=== PATIENT | male | born 1945 | race Caucasian/White ===

== ENCOUNTER 2018-09-26 09:59 | Inpatient (IN) ==
[2018-09-26] MEDS ORDERED: ACETAMINOPHEN 325 MG TABLET PO PRN (13:08)
[2018-09-26] MEDS ORDERED: guaiFENesin/CODEINE 5 ML LIQUID PO PRN (13:08)
[2018-09-26] MEDS ORDERED: MORPHINE 4 MG/1 ML VIAL IV PRN (13:48)
[2018-09-26] MEDS ORDERED: ONDANSETRON 4 MG/2 ML VIAL IV PRN (13:48)
[2018-09-26] MEDS ORDERED: guaiFENesin/DM ER 600-30 MG TABLET PO PRN (13:48)
[2018-09-26] MEDS ORDERED: diphenhydrAMINE CAP 25 MG CAPSULE PO PRN (13:48)
[2018-09-26] MEDS ORDERED: ALBUTEROL 2.5 MG/3 ML NEB RESP TX PRN (13:52)
[2018-09-26] MEDS ORDERED: DEXTROSE 50% 25 GM/50 ML VIAL IV PRN (13:55)
[2018-09-26] MEDS ORDERED: GLUCAGON 1 MG VIAL IM PRN (13:55)
[2018-09-26] MEDS ORDERED: HEPARIN 5,000 UNIT/1 ML VIAL SUBCUT SCH (14:00)
[2018-09-26] MEDS ORDERED: methylPREDNISolone SOD SUC 125 MG/2 ML VIAL IV SCH (14:00)
[2018-09-26] MEDS ORDERED: cefTRIAXone 1,000 MG in SYRINGE 1 EACH IV SCH (14:00)
[2018-09-26] MEDS ORDERED: AZITHROMYCIN INJ 500 MG in SODIUM CHLORIDE 0.9% 250 ML IV SCH (14:00)
[2018-09-26 14:04] LABS: Albumin 3.3 G/DL (3.4-5.0); Bilirubin,Total 1.2 MG/DL (0.2-1.0); Calcium 8.7 MG/DL (8.5-10.1); Osmolality,Calculated 262.7 MOS/KG (273-304); Potassium 4.3 MMOL/L (3.5-5.1); Total Protein 7.4 G/DL (6.4-8.3)
[2018-09-26 14:11] LABS: Troponin I 1.51 NG/ML (0.00-0.045)
[2018-09-26] MEDS ORDERED: HYDROcodone/HOMATROPINE 5 ML UDCUP PO PRN (14:28)
[2018-09-26 14:31] LABS: Risk Ratio 3.6; Thyroid Stimulating Hormone 0.677 uIU/ml (0.358-3.74); VLDL CHOLESTEROL 18.8 MG/DL
[2018-09-26] MEDS ORDERED: SODIUM CHLORIDE 0.9% IV ONE (14:36)
[2018-09-26 14:53] LABS: ABG Base Excess -0.1 MMOL/L (-2.5-2.5); ABG HCO3 24.1 MMOL/L (20-26); ABG Oxygen Saturation 87.6 % (95-100); ABG PCO2 30.4 MM HG (35-48); ABG PH 7.474 (7.35-7.45); ABG PO2 51.3 MM HG (80-95); Allen Test Positive
[2018-09-26] MEDS ORDERED: SODIUM CHLORIDE 0.9% 1,000 ML IV SCH (15:00)
[2018-09-26] MEDS ORDERED: PROPOFOL 1,000 MG/100 ML BOTTLE IV ONE (15:44)
[2018-09-26] MEDS ORDERED: PROPOFOL 1,000 MG/100 ML BOTTLE IV SCH (15:45)
[2018-09-26] MEDS ORDERED: ETOMIDATE 20 MG/10 ML VIAL IV ONE (15:51)
[2018-09-26] MEDS ORDERED: ROCURONIUM 100 MG/10 ML VIAL IV ONE (15:51)
[2018-09-26] MEDS ORDERED: LIDOCAINE 1% 20 ML VIAL ONE (16:07)
[2018-09-26] MEDS ORDERED: HEPARIN/NACL 0.9% 2 UNITS/ML 1,000 ML IV ONE (16:07)
[2018-09-26] MEDS ORDERED: FUROSEMIDE 40 MG/4 ML VIAL ONE (16:11)
[2018-09-26] MEDS ORDERED: FUROSEMIDE 40 MG/4 ML VIAL IV ONE (16:15)
[2018-09-26] MEDS ORDERED: INSULIN REGULAR 100 UNIT/ML SUBCUT SCH (16:30)
[2018-09-26 16:42] LABS: ABG Base Excess -10.2 MMOL/L (-2.5-2.5); ABG HCO3 16.1 MMOL/L (20-26); ABG Oxygen Saturation 75.4 % (95-100); ABG PCO2 60.6 MM HG (35-48); ABG PO2 54.4 MM HG (80-95); ABG TCO2 18.5 MMOL/L (23-27)
[2018-09-26 16:47] LABS: ABG PH 7.144 (7.35-7.45)
[2018-09-26] MEDS ORDERED: PHENYLEPHRINE 50 MG/5 ML VIAL ONE (16:52)
[2018-09-26 16:58] VITALS: BP 132/92
[2018-09-26] MEDS ORDERED: HEPARIN/NACL 0.9% 2 UNITS/ML 500 ML IV ONE ×2 (17:03→17:43)
[2018-09-26 17:05] LABS: Apearance,Urine CLEAR (Clear); Bilirubin,Urine Negative (Negative); Blood, Urine Negative (Negative); Glucose,Urine (UA) Negative (Negative); Ketones,Urine 20 mg/dL (Negative); Mucus,Urine Occasional /LPF (Occasional); Nitrite,Urine Negative (Negative); Protein,Urine Negative; RBC,Urine 3 /HPF (0-4); Urine Color Yellow (Yellow); Urine Urobilinogen < 2.0 EU/DL (0.2-1.0); WBC,Urine 1 /HPF (0-6)
[2018-09-26] MEDS ORDERED: PHENYLEPHRINE DRIP 40 MG/250 ML PREMIX IV PRN (18:10)
[2018-09-26 18:52] LABS: ABG Base Excess -6.4 MMOL/L (-2.5-2.5); ABG HCO3 18.9 MMOL/L (20-26); ABG Oxygen Saturation 79.2 % (95-100); ABG PCO2 51.9 MM HG (35-48); ABG PH 7.238 (7.35-7.45); ABG PO2 52.3 MM HG (80-95); ABG TCO2 19.1 MMOL/L (23-27)
[2018-09-26] MEDS ORDERED: SAW PALMETTO FRUIT 450 MG PO SCH (19:00)
[2018-09-26] MEDS ORDERED: ALBUTEROL/IPRATROPIUM 3 ML NEB RESP TX SCH (19:00)
[2018-09-26 19:23] LABS: CKMB % 10.9 %
[2018-09-26 19:25] LABS: Troponin I 2.87 NG/ML (0.00-0.045)
[2018-09-26] MEDS ORDERED: NOREPINEPHRINE 4 MG/4 ML VIAL IV ONE (19:33)
[2018-09-26] MEDS ORDERED: EPINEPHrine 1 MG/ML VIAL ONE (19:35)
[2018-09-26] MEDS ORDERED: ATORVASTATIN 40 MG TABLET PO SCH (21:00)
[2018-09-26] MEDS ORDERED: DOCUSATE SODIUM 100 MG CAPSULE PO SCH (21:00)
[2018-09-26] MEDS ORDERED: MEMANTINE 10 MG TABLET PO SCH (21:00)
[2018-09-26] MEDS ORDERED: ASPIRIN EC 81 MG TABLET PO SCH (21:00)
[2018-09-26] MEDS ORDERED: VITAMIN E 400 UNIT CAPSULE PO SCH (21:00)
[2018-09-26] MEDS ORDERED: DONEPEZIL 10 MG TABLET PO SCH (21:00)
[2018-09-27] MEDS ORDERED: LEVOTHYROXINE 150 MCG TABLET PO SCH (06:30)
[2018-09-27] MEDS ORDERED: amLODIPine 5 MG TABLET PO SCH (09:00)
[2018-09-27] MEDS ORDERED: PANTOPRAZOLE 40 MG TABLET PO SCH (09:00)
[2018-09-27] MEDS ORDERED: valACYclovir 500 MG TABLET PO SCH (09:00)
== END 2018-09-26 20:01 | disposition hospice, home (50) | DRG 286 ==
LOC: N.TELEN 11:24 → N.ICU 16:17
PROVIDERS: ADMIT Internal Medicine; ATTEND Internal Medicine